=== PATIENT | male | born 1945 | race Caucasian/White ===

== ENCOUNTER 2016-09-07 13:10 | Observation (INO) | payer MEDICARE ==
[~2016-09-07] VITALS: Ht 180.3 cm; Wt 91.2 kg
[2016-09-07] MEDS ORDERED: ASPIRIN325 MG PO (16:04)
[2016-09-08] MEDS ORDERED: PRINIVIL20 MG PO (14:54)
== END 2016-09-08 16:45 | disposition short-term general hospital (02) ==
LOC: ER 13:10 → LAB 13:21 → ER 13:21 → OBS 16:00 → IP 16:00
PROVIDERS: ADMIT Family Medicine
DX: I63.9 Cerebral infarction, unspecified (principal); R53.1 Weakness; I65.21 Occlusion and stenosis of right carotid artery; I10 Essential (primary) hypertension; E11.9 Type 2 diabetes mellitus without complications; R74.8 Abnormal levels of other serum enzymes; E78.5 Hyperlipidemia, unspecified; F17.210 Nicotine dependence, cigarettes, uncomplicated; Z82.49 Family history of ischemic heart disease and other diseases of the circulatory system; Z88.8 Allergy status to other drugs, medicaments and biological substances; Z79.899 Other long term (current) drug therapy; I25.10 Atherosclerotic heart disease of native coronary artery without angina pectoris
CPT/HCPCS: A9150; G0297; G0378; G8987-GO; G8988-GO; G8989-GO